=== PATIENT | male | born 1975 | race Two or more races ===

== ENCOUNTER 2020-03-25 01:18 | Emergency (ER) | payer OTHER ==
[~2020-03-25] VITALS: Ht 172.7 cm; Wt 98.9 kg
[2020-03-25] MEDS ORDERED: FLUORESCEIN 1MG EYE STRIP. OD ONE (02:15)
[2020-03-25] MEDS ORDERED: TETRACAINE 0.5% OPHTH SOLUTION 4ML BOTTLE. OD ONE (02:15)
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
[2020-03-25 02:30] VITALS: BP 156/101
== END 2020-03-25 04:55 | disposition home or self-care (01) ==
LOC: ER 01:18
DX: S01.111A Laceration without foreign body of right eyelid and periocular area, initial encounter (principal); H53.8 Other visual disturbances; W22.8XXA Striking against or struck by other objects, initial encounter; Y93.89 Activity, other specified; Y92.89 Other specified places as the place of occurrence of the external cause; Y99.8 Other external cause status
CPT/HCPCS: 12011; 99283